=== PATIENT | female | born 1985 | race American Indian/Alaskan Native ===

== ENCOUNTER 2017-12-21 01:56 | Outpatient (CLI) | payer MEDICAID ==
[2017-12-21] MEDS ORDERED: TYLENOL PO ONE (03:13)
[2017-12-21 03:15] LABS: Hematocrit 26.2 % (30.3-42.9); Hemoglobin 8.4 gm/dl (10.1-14.3); Mean Corpuscular HGB Conc 32 % (30-34); Mean Corpuscular Hemoglobin 27 pg (28-32); Mean Corpuscular Volume 84 fl (79-97); Platelet Count 208 K/mm3 (140-440); Red Blood Count 3.11 M/mm3 (3.65-5.03); Red Cell Distribution Width 17.3 % (13.2-15.2)
[2017-12-21 03:26] LABS: Bacteria,Urine 3+ /HPF (Negative); Bilirubin,Urine NEG (Negative); Blood,Urine NEG (Negative); Color,Urine Yellow (Yellow); Mucus,Urine FEW /HPF; Protein,Urine <15 mg/dL mg/dL (Negative)
[2017-12-21 03:29] LABS: RBC,Urine < 1.0 /HPF (0.0-6.0)
[2017-12-21 03:38] LABS: Alanine Aminotransferase 12 units/L (7-56)
[2017-12-21 03:48] LABS: Uric Acid 4.1 mg/dL (3.5-7.6)
--- NOTE | 2017-12-21 03:59 | Ultrasound Report ---
FINAL REPORT PROCEDURE: US OB LIMITED TECHNIQUE: Real-time limited sonographic examination was performed for evaluation of size, position, heartbeat, fluid volume for each fetus with image documentation (1 or more fetuses). CPT 89128 HISTORY: felipe COMPARISON: No prior studies are available for comparison. FINDINGS: There is a single live intrauterine gestation in cephalic presentation. Amniotic fluid index is 12.1 centimeters which is within normal limits. Placenta is fundal and grade 2. There is no previa. Heart rate is 156 beats per minute. IMPRESSION: Normal amniotic fluid index.
--- NOTE | 2017-12-21 04:05 | Ultrasound Report ---
FINAL REPORT PROCEDURE: US OB BPP WO NON-STRESS TECHNIQUE: Real-time limited sonographic examination was performed for evaluation of size, position, heartbeat, fluid volume for each fetus with image documentation (1 or more fetuses). CPT 91979 HISTORY: well being COMPARISON: No prior studies are available for comparison. FINDINGS: biophysical profile: breathing movements: 2. movements: 2. posterior and tone: 2. Qualitative amniotic fluid volume: 2. Total score: 8/8. IMPRESSION: Normal biophysical profile.
[2017-12-24 00:57] VITALS: BP 121/59
== END 2017-12-21 05:00 | disposition home or self-care (01) ==
LOC: TRG 01:56
PROVIDERS: ATTEND Obstetrics & Gynecology
DX: O26.893 Other specified pregnancy related conditions, third trimester (principal); O99.333 Smoking (tobacco) complicating pregnancy, third trimester; R22.40 Localized swelling, mass and lump, unspecified lower limb; Z3A.40 40 weeks gestation of pregnancy
CPT/HCPCS: 36415; 76815; 76819; 81001; 82565; 83615; 84450; 84460; 84550; 85027

== ENCOUNTER 2017-12-23 11:40 | Inpatient (IN) | payer MEDICAID ==
[2017-12-23] MEDS ORDERED: SUBLIMAZE IV PRN (11:44)
[2017-12-23] MEDS ORDERED: ZOFRAN IV PRN (11:44)
[2017-12-23] MEDS ORDERED: MAGNESIUM SULFATE 4GM/100ML 4 GM/100 ML BAG IV ONE (11:44)
[2017-12-23] MEDS ORDERED: BRETHINE SUB-Q PRN (11:44)
[2017-12-23] MEDS ORDERED: XYLOCAINE 2% INFILTRATI ONE (11:44)
[2017-12-23] MEDS ORDERED: MINERAL OIL PO PRN (11:44)
--- NOTE | 2017-12-23 11:53 | History and Physical Report ---
History of Present Illness Date of examination: 12/23/17 Date of admission: 12/23/17 11:40 Chief complaint: sent to labor and delivery from office for IOl @ 40+5 weeks. 2 elevated b/p's ( 160/90, 160/88) with + proteinuria. History of present illness: EDC Calculations LMP: 12/18/2017 Past History : 6 Term Births: 4 Premature Births: 0 Living Children: 4 Para: 4 Mult. Births: 0 Prev : 0 Prev. attempt? 0 Aborta: 1 Elect. Ab: 1 Spont. Ab: 0 Ectopics: 0 # 1 Delivery date: 10/12/2006 Weeks Gestation: 41 labor: no Delivery type: Hours of labor: 12 Anesthesia type: epidural Delivery location: [place] Infant Sex: Female weight: 8-1 Name: Isac # 2 Delivery date: 03/10/2008 Weeks Gestation: 12 Delivery type: EAB # 3 Delivery date: 02/28/2009 Weeks Gestation: 40 labor: no Delivery type: Hours of labor: 8 Anesthesia type: epidural Delivery location: [place] Sex: Male weight: 6-13 Name: Pj # 4 Delivery date: 03/02/2013 Weeks Gestation: 41 labor: no Delivery type: Hours of labor: 16 Anesthesia type: epidural Delivery location: [place] Sex: Female weight: 6-7 Name: Sarah Comments: postdate # 5 Delivery date: 04/02/2016 Weeks Gestation: 41 labor: no Delivery type: Hours of labor: 24 Anesthesia type: epidural Delivery location: [place] Infant Sex: Female weight: 7-9 Name: Forever Past Medical History: Negative Past Medical History Past Surgical History: Breast Reduction: (2010) D&C: (03/10/2008) EAB Family History Summary: Other family member - Has No Family History of Ovarvian Cancer - Entered On: 07/28 Other family member - Has No Family History of Colon Cancer - Entered On: 2017 Other family member - Has Family History of Hypertension - Entered On: 07/28/2017 Other family member - Has Family History of Diabetes - Entered On: 07/28/2017 Other family member - Has Family History of Coronary Heart Disease - Entered On : 07/28/2017 Other family member - Has Family History Breast Cancer - Entered On: 07/28/2017 Social History: Patient is single [place] Risk Factors: Smoked Tobacco Use: Never smoker Drug use: yes Substance: marijuana HIV high-risk behavior: low risk Alcohol use: no Past Medical History 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 of genital herpes: yes Genetic History Congenital Heart Defect: Mom: no Dad: no Sandra Disease: Mom: no Dad: no Thalassemia Mom: no Dad: no Neural Tube Defect Mom: no Dad: no Down's Syndrome Mom: no Dad: no Curtis-Sachs Mom: no Dad: no Sickle Cell Disease/Trait Mom: no Dad: no Hemophilia Mom: no Dad: no Muscular Dystrophy Mom: no Dad: no Cystic Fibrosis Mom: no Dad: no [place] Chorea Mom: no Dad: no Mental Retardation Mom: no Dad: no Fragile X Mom: no Dad: no Other Genetic/Chromosomal Disorder Mom: no Dad: no Child w/other defect Mom: no Dad: no Enviromental Exposures Xray Exposure: no Medication, drug, or alcohol use since LMP: no Chemical/Other Exposure: no Exposure to Cat Liter: no Hx of Parvovirus (Fifth Disease): no Active Medications (reviewed today): CITRANATAL RX 27-1 MG ORAL TABLET (PRENAT W/O [id number]) 1 po q day as directed Current Allergies (reviewed today): No known allergies Past History Past Medical History: other (see HPI) Past Surgical History: other (see HPI) 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) Family/Genetic History: other (see HPI) Social history: single, other (homeless) - Obstetrical History Expected Date of Delivery: 12/18/17 Actual Gestation: 40 Week(s) 5 Day(s) : 6 Para: 4 Hx # Term Pregnancies: 4 Number of Pregnancies: 0 Spontaneous Abortions: 0 Induced : 1 Number of Living Children: 4 Medications and Allergies Allergies Allergy/AdvReac Type Severity Reaction Status Date / Time No Known Allergies Allergy Unverified 12/21/17 02:14 Review of Systems All systems: negative Neurological: headaches (x 1 week) - Physical Exam Breasts: Positive: normal Cardiovascular: Regular rate Lungs: Positive: Clear to auscultation, Normal air movement Abdomen: Positive: normal appearance, soft Genitourinary (Female): Positive: normal external genitalia, normal perenium Vulva: both: normal Vagina: Positive: normal moisture Uterus: Positive: normal size Extremities: Positive: edema Deep Tendon Reflex Grade: Normal +2 - Obstetrical FHR: category 1 Uterine Contraction Monitor Mode: External Cervical Dilatation: 1 Cervical Effacement Percentage: 40 station: -3 Uterine Contraction Frequency (min): none Uterine Contraction Pattern: Absent Uterine Tone Measurement Phase: Resting Results Result Diagrams: 12/23/17 11:59 All other labs normal. Assessment and Plan 32y/o @ 40+5 weeks admitted from office with elevated b/p, headaches and proteinuria. dx pre-e. u/s ordered for efw and presentation. Admission orders in EMR. Dr. Yadav aware. - Patient Problems (1) Insufficient care in third trimester Current Visit: Yes Status: Acute (2) Lives in homeless [facility] Current Visit: Yes Status: Acute (3) Pre-eclampsia Current Visit: Yes Status: Acute Qualifiers: Trimester: third trimester Qualified Code(s): O14.93 - Unspecified pre- eclampsia, third trimester (4) 40 weeks gestation of Current Visit: Yes Status: Acute
[2017-12-23] MEDS ORDERED: MAGNESIUM SULFATE 40GM/1000ML 40 GM/1,000 ML BAG IV SCH (12:00)
[2017-12-23] MEDS ORDERED: PITOCin/NS 20 UNIT/1000ML DRIP 20 UNITS/1,000 ML BAG IV SCH (12:00)
[2017-12-23] MEDS ORDERED: LACTATED RINGERS 1,000 ML IV SCH ×2 (12:00)
[2017-12-23 12:24] LABS: Hematocrit 27.3 % (30.3-42.9); Mean Corpuscular HGB Conc 33 % (30-34); Mean Corpuscular Hemoglobin 27 pg (28-32); Mean Corpuscular Volume 83 fl (79-97); Platelet Count 232 K/mm3 (140-440)
[2017-12-23 12:51] LABS: Alanine Aminotransferase 17 units/L (7-56); Uric Acid 3.6 mg/dL (3.5-7.6)
[2017-12-23] MEDS ORDERED: CERVIDIL VG ONE (13:00)
--- NOTE | 2017-12-23 13:53 | Event Note ---
Date: 12/23/17 Will hold magnesium sulfate at this time, 2 consecutive b/p's 120's/60's. pre- e blood work NL, waiting on UA. Will continue with IOL and close monitoring of blood pressures.
[2017-12-23] MEDS ORDERED: AMBIEN PO ONE ×2 (22:10→23:45)
[2017-12-23] MEDS ORDERED: TYLENOL PO ONE ×2 (22:10→23:15)
--- NOTE | 2017-12-23 23:16 | Ultrasound Report ---
FINAL REPORT PROCEDURE: US OB FOLLOW UP TECHNIQUE: Real-time transabdominal sonography of the uterus, placenta, amniotic fluid, adnexa, and fetus was performed with image documentation. Measurements were obtained to determine age/size. M-mode Doppler was used to document heartbeat. CPT 10799 HISTORY: efw, presentation COMPARISON: 12/21/2017 FINDINGS: ADDITIONAL GESTATION: None. GENERAL: IUP: Single living intrauterine . Position: Cephalic Placental position: Left lateral with grade 2 maturity, without previa. Amniotic fluid volume: Normal. Amniotic fluid index is 16.5 centimeters MATERNAL: Uterus: Within normal limits. Cervical length: 3.4 cm. Internal Os: Closed. FETUS: Heart rate and rhythm: 152 beats per minute, regular MEASUREMENTS: BPD: 9.6 centimeters corresponding to 39 weeks and 1 day HC: 33.6 centimeters corresponding to 38 weeks and 3 days AC: 36.1 centimeters corresponding to 40 weeks and 0 days FL: 7.8 centimeters corresponding to 39 weeks and 6 days Mean Gestational Age (composite criteria): 39 weeks and 3 days Ratio biometry: Normal. Estimated Weight: 3852 grams. Estimated Due Date): 12/27/2017 IMPRESSION: Single intrauterine gestation at 39 weeks and 3 days. Estimated due date: 12/27/2017. Amniotic fluid index is 16.5 centimeters
[2017-12-24] MEDS ORDERED: PEPCID PO ONE (00:30)
--- NOTE | 2017-12-24 07:08 | Progress Note ---
Assessment and Plan Pt resting SO and daughter in room No vital signs recorded since 1845 RN made aware SVE no chg AM care, diet, then start pitocin per protocol Re-eval as necessary Subjective - Subjective Date of service: 12/24/17 (sleeping ) Principal diagnosis: IOL Patient reports: movement normal Objective - Vital Signs Vital Signs: Vital Signs - 12hr 12/23/17 12/24/17 12/24/17 20:27 00:30 06:18 Temperature 99.1 F 97.3 F L 96.3 F L Respiratory 18 20 18 Rate - Exam Breasts: deferred Cardiovascular: Regular rate Lungs: Normal air movement Abdomen: Present: normal appearance, soft. Absent: distention, tenderness Uterus: Present: normal FHR: category 1 Uterine Contraction Monitor Mode: External Cervical Dilatation: 1 (cervidil removed) Cervical Effacement Percentage: 40 station: -2 Uterine Contraction Pattern: Irregular Uterine Tone Measurement Phase: Resting Uterine Contraction Intensity: Mild Extremities: edema Deep Tendon Reflex Grade: Normal +2 - Labs Labs: Abnormal Labs 12/23/17 12/23/17 11:59 11:59 RBC 3.30 L Hgb 9.0 L Hct 27.3 L MCH 27 L RDW 17.0 H Creatinine 0.5 L Lactate Dehydrogenase 227 H Laboratory Results - last 24 hr 12/23/17 12/23/17 12/23/17 11:59 11:59 11:59 WBC 7.6 RBC 3.30 L Hgb 9.0 L Hct 27.3 L MCV 83 MCH 27 L MCHC 33 RDW 17.0 H Plt Count 232 Creatinine 0.5 L Estimated GFR > 60 Uric Acid 3.6 AST 26 ALT 17 Lactate Dehydrogenase 227 H Blood Type O POSITIVE Antibody Screen Negative
[2017-12-24 08:15] LABS: Bilirubin,Urine NEG (Negative); Blood,Urine NEG (Negative); Color,Urine Yellow (Yellow); Mucus,Urine FEW /HPF; Protein,Urine <15 mg/dL mg/dL (Negative)
[2017-12-24 08:34] LABS: Amphetamine Screen,Urine PRESUMPTIVE NEGATIVE; Benzodiazepines Screen,Urine PRESUMPTIVE NEGATIVE; Cocaine Screen,Urine PRESUMPTIVE NEGATIVE; Methadone Screen,Urine PRESUMPTIVE NEGATIVE; Opiate Screen,Urine PRESUMPTIVE NEGATIVE
[2017-12-24 08:47] LABS: Cannabinoid Screen,Urine PRESUMPTIVE POSITIVE
[2017-12-24] MEDS ORDERED: PITOCin/NS 30 UNIT/500ML 30 UNITS/500 ML BAG IV SCH (09:00)
[2017-12-24] MEDS ORDERED: BICITRA ONE (10:50)
[2017-12-24] MEDS ORDERED: PEPCID IV ONE ×2 (11:38→17:56)
--- NOTE | 2017-12-24 13:02 | Progress Note ---
Assessment and Plan pt tolerating labor well SVE 4,60,-1 ISE/IUPC placed Pit @ 16mu Re-eval as needed Subjective - Subjective Date of service: 12/24/17 (pt declines epidural) Principal diagnosis: IOL Patient reports: movement normal Objective - Vital Signs Vital Signs: Vital Signs - 12hr 12/24/17 12/24/17 12/24/17 06:00 06:18 07:15 Temperature 96.3 F L Pulse Rate 80 80 Respiratory 20 18 20 Rate Blood Pressure Blood Pressure 121/59 [Right] O2 Sat by Pulse 99 99 Oximetry 12/24/17 12/24/17 12:42 12:58 Temperature Pulse Rate 80 88 Respiratory Rate Blood Pressure 105/58 116/63 Blood Pressure [Right] O2 Sat by Pulse Oximetry - Exam Breasts: deferred Cardiovascular: Regular rate Lungs: Normal air movement Abdomen: Present: normal appearance, soft. Absent: distention, tenderness Uterus: Present: normal FHR: auscultation normal, category 1 Uterine Contraction Monitor Mode: Internal Cervical Dilatation: 4 (ISE/IUPC placed) Cervical Effacement Percentage: 60 station: -1 Uterine Contraction Pattern: Regular Uterine Tone Measurement Phase: Resting Uterine Contraction Intensity: Moderate Extremities: normal Deep Tendon Reflex Grade: Normal +2 - Labs Labs: Abnormal Labs 12/23/17 12/23/17 11:59 11:59 RBC 3.30 L Hgb 9.0 L Hct 27.3 L MCH 27 L RDW 17.0 H Creatinine 0.5 L Lactate Dehydrogenase 227 H Laboratory Results - last 24 hr 12/23/17 12/23/17 12/24/17 11:59 11:59 07:30 Urine Color Yellow Urine Turbidity Slightly-cloudy Urine pH 6.0 Ur Specific [place] 1.019 Urine Protein <15 mg/dl Urine Glucose (UA) Neg Urine Ketones Neg Urine Blood Neg Urine Nitrite Neg Urine Bilirubin Neg Urine Urobilinogen 2.0 Ur Leukocyte Esterase Neg Urine WBC (Auto) 1.0 Urine RBC (Auto) 1.0 U Epithel Cells (Auto) 3.0 Urine Mucus Few Urine Opiates Screen Urine Methadone Screen Ur Barbiturates Screen Ur Phencyclidine Scrn Ur Amphetamines Screen U Benzodiazepines Scrn Urine Cocaine Screen U Marijuana (THC) Screen Drugs of Abuse Note RPR Nonreactive Blood Type O POSITIVE Antibody Screen Negative 12/24/17 07:30 Urine Color Urine Turbidity Urine pH Ur Specific [place] Urine Protein Urine Glucose (UA) Urine Ketones Urine Blood Urine Nitrite Urine Bilirubin Urine Urobilinogen Ur Leukocyte Esterase Urine WBC (Auto) Urine RBC (Auto) U Epithel Cells (Auto) Urine Mucus Urine Opiates Screen Presumptive negative Urine Methadone Screen Presumptive negative Ur Barbiturates Screen Presumptive negative Ur Phencyclidine Scrn Presumptive negative Ur Amphetamines Screen Presumptive negative U Benzodiazepines Scrn Presumptive negative Urine Cocaine Screen Presumptive negative U Marijuana (THC) Screen Presumptive positive Drugs of Abuse Note Disclamer RPR Blood Type Antibody Screen
[2017-12-24] MEDS ORDERED: NARCAN 2 MG/2 ML IV PRN (16:43)
[2017-12-24] MEDS ORDERED: fentaNYL-BUPIV 2 MCG/ML-0.125% 200 MCG/100 ML BAG EPIDURAL SCH (17:00)
[2017-12-24] MEDS ORDERED: NORCO 5/325 PO PRN (17:27)
[2017-12-24] MEDS ORDERED: PHENERGAN PO PRN (17:27)
[2017-12-24] MEDS ORDERED: TUCKS PAD TP PRN (17:27)
[2017-12-24] MEDS ORDERED: LANSINOH TP PRN (17:27)
[2017-12-24] MEDS ORDERED: MILK OF MAGNESIA PO PRN (17:27)
[2017-12-24] MEDS ORDERED: BENADRYL PO PRN (17:27)
[2017-12-24] MEDS ORDERED: DULCOLAX PR PRN (17:27)
[2017-12-24] MEDS ORDERED: TYLENOL PO PRN (17:27)
--- NOTE | 2017-12-24 17:32 | Procedure Note ---
OB Delivery Note - Delivery Date of Delivery: 12/24/17 Office Support Assistant: OLIVIA LI Estimated blood loss: 300cc - Vaginal Delivery presentation: vertex Delivery position: OA Intrapartum events: preeclampsia, other(please specify) (insufficient PNC) Delivery induction: cervidil Delivery augmentation: pitocin Delivery monitor: internal FHT, internal uterine Route of delivery: Delivery placenta: spontaneous Delivery cord: 3 umbilical vessels Episiotomy: none Delivery laceration: none Anesthesia: epidural Delivery comments: live born male over intact perineum Baby skin to skin on mom. Cord blood obtained Placenta and membrane delivered complete and intact, 3 vessel cord. Pit IVFs 8/9, EBL 300, Wgt 8-10 Mom and baby remain LDR stable. - A at 1 minute: 8 at 5 minutes: 9 Infant Gender: Male (wgt 8-10)
[2017-12-24] MEDS ORDERED: REGLAN IV ONE (17:56)
[2017-12-24] MEDS ORDERED: BICITRA PO ONE (17:56)
--- NOTE | 2017-12-24 17:56 | Event Note ---
Date: 12/24/17 (c/s ) Spoke with Dr Hi Pt desires to proceed with c/s Orders in EMR
[2017-12-24] MEDS ORDERED: LACTATED RINGERS 1,000 ML IV SCH (18:00)
[2017-12-24] MEDS ORDERED: ANCEF/STERILE WATER 2 GM/20 ML 2 GM/20 ML SYRINGE IV NR (18:00)
[2017-12-24] MEDS ORDERED: PITOCin/NS 20 UNIT/1000ML DRIP 20 UNITS/1,000 ML BAG IV SCH (18:00)
[2017-12-24] MEDS ORDERED: SODIUM CHLORIDE FLUSH SYRINGE 10 ML IV NR (18:00)
[2017-12-24] MEDS: MOTRIN PO SCH (18:24)
[2017-12-25] MEDS: MOTRIN PO SCH ×4 (00:03→18:35)
[2017-12-25 05:54] LABS: Hematocrit 23.7 % (30.3-42.9); Hemoglobin 7.7 gm/dl (10.1-14.3)
--- NOTE | 2017-12-25 08:33 | Discharge Summary ---
Providers - Providers Date of Admission: 12/23/17 11:40 Date of discharge: 12/25/17 (desires d/c home) Attending physician: DAMIEN STINSON Primary care physician: YASMANI PEREZ Hospitalization Reason for admission: elevated b/p in office, post dates Condition: Good Pertinent studies: pre-e labs normal, post delivery H&H 7.7/23.7 (existing anemia before delivery) Procedures: Hospital course: uncomplicated and course Disposition: DC-01 TO HOME OR SELFCARE - Discharge Diagnoses (1) Insufficient care in third trimester Status: Acute (2) Spontaneous vaginal delivery Status: Acute Core Measure Documentation - Palliative Care Palliative Care/ Comfort Measures: Not Applicable - Core Measures Any of the following diagnoses?: none Exam - Constitutional Vitals: Temp Pulse Resp BP Pulse Ox 98.4 F 77 20 122/72 98 12/25/17 00:15 12/24/17 19:03 12/25/17 00:15 12/25/17 00:15 12/25/17 00:15 General appearance: Present: no acute distress, well-nourished - EENT Eyes: Present: PERRL ENT: hearing intact, clear oral mucosa - Neck Neck: Present: supple, normal ROM - Respiratory Respiratory effort: normal Respiratory: bilateral: CTA - Cardiovascular Heart Sounds: Present: S1 & S2. Absent: rub, click - Extremities Extremities: pulses symmetrical, No edema Peripheral Pulses: within normal limits - Abdominal General gastrointestinal: Present: soft, non-tender, non-distended, normal bowel sounds Female genitourinary: Present: normal - Integumentary Integumentary: Present: clear, warm, dry - Musculoskeletal Musculoskeletal: gait normal, strength equal bilaterally - Psychiatric Psychiatric: appropriate mood/affect, intact judgment & insight - Neurologic Neurologic: CNII-XII intact, moves all extremities - Additional findings Additional findings: lochia scant, fundus firm, VSSAF, asymptomatic anemia, existing before delivery. breast and bottle feeding Plan Activity: no restrictions Diet: regular Follow up with: YASMANI PEREZ MD [Primary Care Provider] - 7 Days (Congratulations! Please call [phone] to schedule your son's circumcision in 1 week and your visit in 4 weeks. Bring EMLA cream to your son's visit and await further instructions. Call for any questions or concerns. ) Prescriptions: Ferrous Sulfate [Feosol 325 MG tab] 325 mg PO BID #90 tablet Ibuprofen [Motrin 800 MG tab] 800 mg PO Q8HR PRN #30 tablet PRN Reason: Pain Lidocain2.5%/Prilocai2.5% [Emla] 5 gm TP ONCE PRN #1 tube PRN Reason: Pain
[2017-12-25] MEDS ORDERED: M-M-R II VACCINE SUB-Q ONE (17:27)
[2017-12-25] MEDS ORDERED: BOOSTRIX IM ONE (17:27)
[2017-12-26 03:53] VITALS: BP 116/58
== END 2017-12-25 21:00 | disposition home or self-care (01) | DRG 774 ==
LOC: LD 11:40 → OB 12-24 18:57
PROVIDERS: ADMIT Obstetrics & Gynecology; ATTEND Obstetrics & Gynecology
PROC: 10E0XZZ Delivery of Products of Conception, External Approach (ICD-10-PCS; principal; 2017-12-24)
PROC: 3E0234Z Introduction of Serum, Toxoid and Vaccine into Muscle, Percutaneous Approach (ICD-10-PCS; 2017-12-24)
PROC: 3E0R3BZ Introduction of Anesthetic Agent into Spinal Canal, Percutaneous Approach (ICD-10-PCS; 2017-12-24)
PROC: 00HU33Z Insertion of Infusion Device into Spinal Canal, Percutaneous Approach (ICD-10-PCS; 2017-12-24)
PROC: 10H07YZ Insertion of Other Device into Products of Conception, Via Natural or Artificial Opening (ICD-10-PCS; 2017-12-24)
PROC: 3E0P7VZ Introduction of Hormone into Female Reproductive, Via Natural or Artificial Opening (ICD-10-PCS; 2017-12-24)
DX: O14.94 Unspecified pre-eclampsia, complicating childbirth (principal); Z3A.40 40 weeks gestation of pregnancy; F12.90 Cannabis use, unspecified, uncomplicated; O99.324 Drug use complicating childbirth; Z37.0 Single live birth; Z23 Encounter for immunization; Z82.49 Family history of ischemic heart disease and other diseases of the circulatory system; Z80.3 Family history of malignant neoplasm of breast; Z83.3 Family history of diabetes mellitus; Z59.0 Homelessness; O48.0 Post-term pregnancy; O99.02 Anemia complicating childbirth; D64.9 Anemia, unspecified
CPT/HCPCS: 36415; 59200; 76816; 80307; 81001; 82565; 83615; 84450; 84460; 84550; 85014; 85018; 85027; 86592; 86706; 86850; 86900; 86901; 88307; A6250; J2590; J3010; J7120